=== PATIENT | male | born 1995 | race Caucasian/White ===

== ENCOUNTER 2018-07-11 15:13 | Outpatient (REF) | payer MEDICARE, SELFPAY ==
[2018-07-11 20:54] LABS: Abs Immature Grans 0.02 k/cumm (0.0-0.09); Absolute Basophil Count 0.02 k/cumm (0.0-0.2); Absolute Eosinophil Count 0.04 k/cumm (0.0-0.7); Absolute Lymphocyte Count 1.73 k/cumm (1.2-3.4); Absolute Monocyte Count 0.48 k/cumm (0.11-0.7); Absolute Neutrophil Count 5.86 k/cumm (1.2-6.7); Basophils % 0.2; Eosinophils % 0.5; HCT 46.6 % (40.0-50.0); HGB 15.9 g/dL (13.5-17.5); Immature Grans % 0.2; Lymphocytes % 21.2; Mean Corp. HGB Concentration 34.1 g/dL (32.0-36.0); Mean Corpuscular Hemoglobin 29.6 pg (27.0-33.0); Mean Corpuscular Volume 86.6 fL (80-95); Mean Platelet Volume 9.1 fL (8.0-11.0); Monocytes % 5.9; Platelet Count 308 x1000/uL (130-400); RBC 5.38 m/cumm (4.50-6.00); RBC Distribution Width 12.3 % (11.8-14.1); White Blood Cell Count 8.15 k/cumm (4.4-10.8)
[2018-07-11 22:11] LABS: ALT 119 U/L (12-78); AST 47 U/L (15-37); Albumin 4.4 g/dL (3.4-5.0); Alkaline Phosphatase 81 U/L (46-116); Anion Gap 11.6 mmol/L (3-11); BUN 13 mg/dL (7-18); Bilirubin, Total 0.7 mg/dL (0.2-1.0); CO2 26.4 mmol/L (21.0-32.0); CREATININE 0.85 mg/dL (0.70-1.30); Calcium 9.5 mg/dL (8.5-10.1); Chloride 100 mmol/L (98-107); Glucose 87 mg/dL (70-100); Potassium 4.3 mmol/L (3.5-5.1); Sodium 138 mmol/L (136-145); TSH (W/Ref FT4) 1.05 uIU/mL (0.358-3.74); Total Protein 8.1 g/dL (6.4-8.2)
== END 2018-07-11 15:33 ==
LOC: NCHCN 15:13
PROVIDERS: PCP Physician Assistant Medical; Visit Provider Physician Assistant Medical
DX: F41.9 Anxiety disorder, unspecified (principal); R11.10 Vomiting, unspecified
CPT/HCPCS: 80053; 84443; 85025

== ENCOUNTER 2018-07-18 01:25 | Outpatient (CLI) | payer MEDICARE, SELFPAY ==
--- NOTE | 2018-07-18 09:23 | DI.US_ITS ---
SYMPTOM/DIAGNOSIS: VOMITING, R11.10 ABDOMEN ULTRASOUND: The aorta and vena cava are normal. Fatty infiltration of the liver is noted and there is mild hepatomegaly. The gallbladder is intact. There are no stones or ductal dilatation. The head and body of the pancreas are unremarkable. The tail is not seen. The spleen is normal. The kidneys are normal. SUMMARY: A technically limited examination was obtained due to body habitus. No abnormality is seen.
== END 2018-07-18 01:45 ==
PROVIDERS: PCP Physician Assistant Medical; Visit Provider Physician Assistant Medical
DX: R16.0 Hepatomegaly, not elsewhere classified (principal); R11.10 Vomiting, unspecified
CPT/HCPCS: 76700

== ENCOUNTER 2018-08-06 10:36 | Outpatient (REF) | payer MEDICARE, SELFPAY ==
[2018-08-06 21:57] LABS: ALT 90 U/L (12-78); AST 34 U/L (15-37); Albumin 4.3 g/dL (3.4-5.0); Alkaline Phosphatase 88 U/L (46-116); Bilirubin, Direct 0.12 mg/dL (0.00-0.20); Bilirubin, Total 0.4 mg/dL (0.2-1.0); Total Protein 7.9 g/dL (6.4-8.2)
[2018-08-08 10:22] LABS: Hepatitis A Antibody IgM Negative (NEGAT); Hepatitis B Core Antibody Negative (NEGAT); Hepatitis B surface Ag Negative (NEGAT); Hepatitis C Ab w Rflx HCV PCR Negative (NEGAT)
== END 2018-08-06 10:56 ==
LOC: NCHCN 10:36
PROVIDERS: PCP Physician Assistant Medical; Visit Provider Physician Assistant Medical
DX: R79.89 Other specified abnormal findings of blood chemistry (principal)
CPT/HCPCS: 80076; 86704; 86709; 86803; 87340

== ENCOUNTER 2018-11-06 14:40 | Emergency (ER) | payer MEDICARE, MEDICAID, SELFPAY ==
[2018-11-06 14:58] VITALS: BP 120/67; PULSE 80; RESP 16; TEMP 36.5; O2SAT 98
--- NOTE | 2018-11-06 16:34 | ED.GENADUL_ITS ---
Discharge Plan Disposition Patient Disposition: HOME Discharge Details Chief Complaint: RespSymp Clinical Impression: Acute right otitis media Primary Care Provider: Tam Hernandez ED Provider: Gabe Hernandez Home Meds and New Rx's Prescriptions: New amoxicillin-pot clavulanate [Augmentin] 875-125 mg tablet 1 tab PO BID Qty: 19 RF: 0 Discharge Instructions Instructions: Otitis Media (ED) Additional Instructions: Please take ibuprofen over the counter - dose according to label. Please contact your primary care physician to arrange follow-up. Return to the ER for any worsening or new concerning symptoms. Referrals: Tam Hernandez PA [Primary Care Provider] - Medical Decision Making 23-year-old male here with acute otitis media. Plan to treat with Augmentin. Usual customary discharge instructions were provided. Ibuprofen was offered and patient declined. HPI General Mode of arrival: ambulatory . Date/Time Provider Initiated Documentation: 11/06/18 15:28 . Limitations to Documentation: no limitations . Information obtained by: patient . HPI Narrative: 23-year-old male presents with chief complaint of ear pain. Patient notes right ear pain for the past week or so. Pain is persistent and progressively worse. He has some discomfort in his left ear as well. Patient notes he is been sick with URI symptoms for about 2 weeks. No recent fever. No headache. He has had some difficulty sleeping and associated anxiety Related Data Home Medications Medication Instructions Recorded Confirmed amoxicillin-pot clavulanate 1 tab PO BID #19 tab 11/06/18 [Augmentin] Previous Rx's Medication Instructions Recorded amoxicillin-pot clavulanate 1 tab PO BID #19 tab 11/06/18 [Augmentin] Allergies Allergy/AdvReac Type Severity Reaction Status Date / Time acetaminophen [From Tylenol] Allergy Nausea Unverified 11/06/18 15:06 aspirin AdvReac Unverified 11/06/18 15:06 General Stated Complaint: RespSymp [place]: 4 Review of Systems Constitutional Denies fever(s) ENT Denies dysphagia, Reports otalgia, Reports nasal congestion and Reports sore throat Cardiovascular Denies dyspnea Respiratory Reports cough (in AM) and Denies dyspnea Gastrointestinal Denies dysphagia Integumentary/Breasts Reports rash (back of neck related to metal necklace) PFSH Social History Smoking and Tabacco status: Current every day Exam Const General: cooperative and no acute distress HENMT Ears: external ears normal, TM normal on the left, no periauricular adenopathy, TM abnormal (Bulging with erythema and effusion) and other (no mastoid tenderness) General nose exam: external nose normal Mouth: moist mucous membranes Throat: tonsils normal, uvula midline and posterior oropharynx abnormal eryth soha; no cobblstoning, no edema and no exudates Eyes Conjunctivae: normal conjunctivae Sclera: normal sclerae EOM: EOM intact bilaterally Neck Neck: trachea midline and supple Resp Auscultation: clear to auscultation bilaterally, no rales, no rhonchi and no wheezes Cardio Jugular venous pressure: no JVD Rate: regular rate and not tachycardic Rhythm: regular rhythm GI Palpation: soft, not firm, no guarding, no masses, not rigid and nontender Skin General skin exam: no rashes or lesions noted Neuro General: alert, awake, oriented x3 and tone normal Course Vital Signs Temperature 36.5 C 11/06/18 14:58 Pulse 80 11/06/18 14:58 Respiratory Rate 16 11/06/18 14:58 Blood Pressure 120/67 11/06/18 14:58 Pulse Oximetry 98 11/06/18 14:58 Temperature 36.5 C 11/06/18 14:58 Temperature Source Temporal Artery Scan 11/06/18 14:58 Pulse 80 11/06/18 14:58 Respiratory Rate 16 11/06/18 14:58 Respiratory Effort 11/06/18 16:19 Respiratory Depth Normal 11/06/18 16:19 Blood Pressure 120/67 11/06/18 14:58 Blood Pressure Position Sitting 11/06/18 14:58 Pulse Oximetry 98 11/06/18 14:58 Oxygen Delivery Method Room Air 11/06/18 14:58 Oxygen Flow Rate 0 11/06/18 14:58 Pain Level 2 11/06/18 14:58
== END 2018-11-06 16:42 | disposition home or self-care (01) ==
LOC: ER 16:56
PROVIDERS: Emergency Provider Student in an Organized Health Care Education/Training Program; PCP Physician Assistant Medical
DX: H66.91 Otitis media, unspecified, right ear (principal)
CPT/HCPCS: 99283

== ENCOUNTER 2020-06-23 10:40 | Outpatient (REF) | payer MEDICARE, SELFPAY ==
[2020-06-23 19:37] LABS: ALT 44 U/L (16-63); AST 21 U/L (15-37); Albumin 4.7 g/dL (3.4-5.0); Alkaline Phosphatase 72 U/L (46-116); Anion Gap 15.2 mmol/L (3-11); BUN 15 mg/dL (7-18); Bilirubin, Total 0.6 mg/dL (0.2-1.0); CO2 22.8 mmol/L (21.0-32.0); CREATININE 1.05 mg/dL (0.70-1.30); Calcium 9.7 mg/dL (8.5-10.1); Chloride 101 mmol/L (98-107); Glucose 98 mg/dL (74-106); Potassium 4.1 mmol/L (3.5-5.1); Sodium 139 mmol/L (136-145)
[2020-06-25 10:10] LABS: HIV-1/2 Ag & Ab Screen Negative (Negative)
[2020-06-25 10:24] LABS: Hepatitis C Ab w Rflx HCV PCR Negative (Negative)
[2020-06-25 10:28] LABS: Syphilis Serology (RPR) Negative (Negative)
[2020-06-25 14:17] LABS: Chlamydia Result Negative (Negative); GC Result Negative (Negative)
== END 2020-06-23 11:00 ==
LOC: NCHCN 10:40
PROVIDERS: PCP Physician Assistant Medical; Visit Provider Physician Assistant Medical
DX: Z11.4 Encounter for screening for human immunodeficiency virus [HIV] (principal); Z11.59 Encounter for screening for other viral diseases; Z11.3 Encounter for screening for infections with a predominantly sexual mode of transmission; R79.89 Other specified abnormal findings of blood chemistry
CPT/HCPCS: 80053; 86803; 87389; 87491; 87591; 86592

== ENCOUNTER 2020-10-21 17:09 | Outpatient (REF) | payer MEDICARE, SELFPAY ==
[2020-10-22 10:21] LABS: Hepatitis C Ab w Rflx HCV PCR Negative (Negative)
[2020-10-22 11:48] LABS: Syphilis Serology (RPR) Negative (Negative)
[2020-10-23 10:37] LABS: HIV-1/2 Ag & Ab Screen Negative (Negative)
[2020-10-23 15:04] LABS: Chlamydia Result Negative (Negative); GC Result Negative (Negative)
== END 2020-10-21 17:10 | disposition home or self-care (01) ==
LOC: NCHCN 17:09
PROVIDERS: PCP Physician Assistant Medical; Visit Provider Physician Assistant Medical
DX: Z20.2 Contact with and (suspected) exposure to infections with a predominantly sexual mode of transmission (principal)
CPT/HCPCS: 86803; 87389; 87491; 87591; 86592

== ENCOUNTER 2020-12-31 17:38 | Outpatient (REF) | payer MEDICARE, SELFPAY ==
[2021-01-02 15:03] LABS: COVID-19 RT-PCR UVMMC Result Negative (Negative)
== END 2020-12-31 17:39 | disposition home or self-care (01) ==
LOC: NCHCN 17:38
PROVIDERS: PCP Physician Assistant Medical; Visit Provider Nurse Practitioner Family
DX: Z20.822 Contact with and (suspected) exposure to COVID-19 (principal); R05 Cough
CPT/HCPCS: U0003; U0005